=== PATIENT | female | born 1995 | race American Indian/Alaskan Native ===

== ENCOUNTER 2019-03-05 22:24 | Emergency (ER) | payer OTHER ==
--- NOTE | 2019-03-05 22:48 | Emergency Department Report ---
Blank Doc - Documentation Documentation: 23 y o female presents witth throat pain states tonsils out states previous hx and was given steroids which gave her relief [facility] eval
--- NOTE | 2019-03-06 01:36 | Emergency Department Report ---
ED ENT HPI - General Chief complaint: Sore Throat Stated complaint: THROAT SWELLING Time Seen by Provider: 03/05/19 22:47 Source: patient Mode of arrival: Ambulatory Limitations: No Limitations - History of Present Illness Initial comments: Patient is a nulliparous 23-year-old [place] female with no past medical history who presents to the ED with complaint of acute onset persistent nasal and sinus congestion, severe sore throat with dysphagia and mild dry cough for the last 2 days. Patient denies fever, chills, nausea, vomiting, dizziness, headache, chest pain, shortness of breath, dysuria, urinary frequency and urgency and abdominal pain. MD complaint: sore throat, other (Nasal and sinus congestion) -: Sudden, days(s) (2) Location: nose, throat Severity: moderate Severity scale (0 -10): 5 Quality: burning, aching, sharp Consistency: constant Improves with: none Worsens with: swallowing, eating Associated Symptoms: cough, pain with swallowing, sore throat, rhinorrhea - Related Data Previous Rx's Medication Instructions Recorded Last Taken Type Amoxicillin [Trimox CAP] 500 mg PO Q8H #30 capsule 03/06/19 Unknown Rx Ibuprofen [Motrin] 400 mg PO Q8H PRN #20 tablet 03/06/19 Unknown Rx methylPREDNISolone [Medrol] 4 mg PO DAILY #21 tab.ds.pk 03/06/19 Unknown Rx Allergies Allergy/AdvReac Type Severity Reaction Status Date / Time No Known Allergies Allergy Unverified 03/05/19 22:39 ED Dental HPI - General Chief complaint: Sore Throat Stated complaint: THROAT SWELLING Time Seen by Provider: 03/05/19 22:47 Source: patient Mode of arrival: Ambulatory Limitations: No Limitations - History of Present Illness Initial comments: Patient is a nulliparous 23-year-old [place] female with no past medical history who presents to the ED with complaint of acute onset persistent nasal and sinus congestion, severe sore throat with dysphagia and mild dry cough for the last 2 days. Patient denies fever, chills, nausea, vomiting, dizziness, headache, chest pain, shortness of breath, dysuria, urinary frequency and urgency and abdominal pain. MD complaint: sore throat, difficulty swallowing -: Sudden, days(s) (2) 1 - Erythematous oropharynx Severity: moderate Quality: burning, aching, constant Consistency: constant Improves with: none Worsens with: swallowing, eating Dental Associated Symptons: Yes: Sore Throat. No: Fever - Related Data Previous Rx's Medication Instructions Recorded Last Taken Type Amoxicillin [Trimox CAP] 500 mg PO Q8H #30 capsule 03/06/19 Unknown Rx Ibuprofen [Motrin] 400 mg PO Q8H PRN #20 tablet 03/06/19 Unknown Rx methylPREDNISolone [Medrol] 4 mg PO DAILY #21 tab.ds.pk 03/06/19 Unknown Rx Allergies Allergy/AdvReac Type Severity Reaction Status Date / Time No Known Allergies Allergy Unverified 03/05/19 22:39 ED Review of Systems ROS: Stated complaint: THROAT SWELLING Other details as noted in HPI Comment: All other systems reviewed and negative Constitutional: no symptoms reported, see HPI. denies: chills, diaphoresis, fever, malaise, weakness Eyes: as per HPI. denies: eye pain, eye discharge, vision change ENT: as per HPI, throat pain, congestion. denies: ear pain, dental pain, hearing loss, epistaxis Respiratory: no symptoms reported, see HPI, cough. denies: shortness of breath, SOB with exertion, SOB at rest Cardiovascular: as per HPI. denies: chest pain, palpitations, dyspnea on exertion, syncope, paroxysmal nocturnal dyspnea Endocrine: no symptoms reported, see HPI. denies: excessive sweating, flushing, increased thirst, increased urine, unexplained weight gain Gastrointestinal: as per HPI. denies: abdominal pain, nausea, vomiting, diarrhea, constipation, hematemesis, hematochezia Genitourinary: as per HPI. denies: urgency, dysuria, frequency, hematuria, abnormal menses, dyspareunia Musculoskeletal: as per HPI. denies: back pain, joint swelling, arthralgia Skin: as per HPI. denies: rash, lesions, change in color, change in hair/nails Neurological: as per HPI. denies: headache, weakness, numbness, paresthesias, confusion, abnormal gait, vertigo Psychiatric: as per HPI. denies: anxiety, depression, auditory hallucinations, visual hallucinations Hematological/Lymphatic: as per HPI. denies: easy bleeding, easy bruising, swollen glands ED Past Medical Hx - Past Medical History Previous Medical History?: No - Surgical History Additional Surgical History: tonsillectomy - Social History Smoking Status: Never Smoker Substance Use Type: Marijuana - Medications Home Medications: Home Medications Medication Instructions Recorded Confirmed Last Taken Type Amoxicillin [Trimox CAP] 500 mg PO Q8H #30 capsule 03/06/19 Unknown Rx Ibuprofen [Motrin] 400 mg PO Q8H PRN #20 tablet 03/06/19 Unknown Rx methylPREDNISolone [Medrol] 4 mg PO DAILY #21 tab.ds.pk 03/06/19 Unknown Rx ED Physical Exam - General Limitations: No Limitations General appearance: alert, in no apparent distress - Head Head exam: Present: atraumatic, normocephalic, normal inspection - Eye Eye exam: Present: normal appearance, PERRL, EOMI. Absent: scleral icterus, conjunctival injection, nystagmus, periorbital swelling, periorbital tenderness Pupils: Present: normal accommodation. Absent: mydriatic - ENT ENT exam: Present: mucous membranes moist, TM's normal bilaterally, normal external ear exam, other (Erythematous oropharynx with white exudates) - Neck Neck exam: Present: normal inspection, full ROM, lymphadenopathy. Absent: tenderness - Respiratory Respiratory exam: Present: normal lung sounds bilaterally. Absent: respiratory distress, wheezes, rales, chest wall tenderness, accessory muscle use, decreased breath sounds, prolonged expiratory - Cardiovascular Cardiovascular Exam: Present: regular rate, normal rhythm, normal heart sounds - GI/Abdominal GI/Abdominal exam: Present: soft. Absent: distended, tenderness, rebound, normal bowel sounds, hyperactive bowel sounds, hypoactive bowel sounds, bruit, pulsatile mass - Rectal Rectal exam: Present: deferred - Extremities Exam Extremities exam: Present: normal inspection, full ROM, normal capillary refill - Back Exam Back exam: Present: normal inspection, full ROM. Absent: tenderness, CVA tenderness (R), CVA tenderness (L), muscle spasm, paraspinal tenderness, vertebral tenderness - Neurological Exam Neurological exam: Present: alert, oriented X3, CN II-XII intact, normal gait, reflexes normal - Psychiatric Psychiatric exam: Present: normal affect. Absent: normal mood, depressed, anxious, flat affect, suicidal ideation - Skin Skin exam: Present: warm, dry, intact, normal color ED Course Vital Signs 03/05/19 03/06/19 22:36 01:57 Temperature 98.4 F 98.5 F Pulse Rate 95 H 73 Respiratory 18 16 Rate Blood Pressure 126/81 Blood Pressure 112/68 [Right] O2 Sat by Pulse 100 100 Oximetry - Reevaluation(s) Reevaluation #1: 03/06/19 06:43 Patient is alert and oriented 3 and is not in any distress with normal vital signs. Patient is sent home on medications and advised follow-up with her primary care physician in 5-7 days for reevaluation or return to the ED immediately if symptoms get worse. ED Medical Decision Making - Medical Decision Making Patient is alert and oriented 3 and is not in any distress with normal vital signs. Patient is sent home on medications and advised follow-up with her primary care physician in 5-7 days for reevaluation or return to the ED immediately if symptoms get worse - Differential Diagnosis acute strep pharyngitis, acute upper respiratory infection Critical care attestation.: If time is entered above; I have spent that time in minutes in the direct care of this critically ill patient, excluding procedure time. ED Disposition Clinical Impression: Acute upper respiratory infection Acute pharyngitis Qualifiers: Pharyngitis/tonsillitis etiology: other specified organisms Qualified Code(s): J02.8 - Acute pharyngitis due to other specified organisms Disposition: DC-01 TO HOME OR SELFCARE Is pt being admited?: No Does the pt Need Aspirin: No Condition: Stable Instructions: Pharyngitis (ED), Upper Respiratory Infection (ED) Additional Instructions: Take medication with food, drink plenty of fluids and follow up with your primary care physician in 3-5 days for reevaluation. Return to the ED immediately if symptoms get worse. Prescriptions: methylPREDNISolone [Medrol] 4 mg PO DAILY #21 tab.ds.pk Ibuprofen [Motrin] 400 mg PO Q8H PRN #20 tablet PRN Reason: Pain , Severe (7-10) Amoxicillin [Trimox CAP] 500 mg PO Q8H #30 capsule Referrals: JENNIFER MARKHAM MD [Primary Care Provider] - 3-5 Days Forms: Work/School Release Form(ED) Time of Disposition: 01:36 Print Language: GHANAIAN
[2019-03-06 01:58] VITALS: BP 112/68
== END 2019-03-06 01:58 | disposition home or self-care (01) ==
LOC: ED 22:24
DX: J02.8 Acute pharyngitis due to other specified organisms (principal); J06.9 Acute upper respiratory infection, unspecified; F12.10 Cannabis abuse, uncomplicated; Z90.49 Acquired absence of other specified parts of digestive tract
CPT/HCPCS: 99282

== ENCOUNTER 2019-09-10 18:35 | Emergency (ER) | payer SELFPAY ==
[2019-09-10 19:01] VITALS: BP 105/69
--- NOTE | 2019-09-10 19:03 | Emergency Department Report ---
- General Chief Complaint: Sore Throat Stated Complaint: HEADACHE/SWOLLEN THROAT/FEVER Time Seen by Provider: 09/10/19 18:57 Source: patient Mode of arrival: Ambulatory Limitations: No Limitations - History of Present Illness Initial Comments: This is a 24-year-old female nontoxic well in appearance with no signs of distress presents to the ED with complaint of sore throat,body aches, and frontal sinus pain. Patient denies any drooling or hoarseness. Patient denies any other symptoms. Denies any cough. Denies any fever, chills, headache, nausea, vomiting, chest pain or SOB. Denies any other complaints. MD Complaint: sore throat, rhinorrhea, nasal congestion, sinus pain -: days(s) Severity: mild Severity scale (0 -10): 8 Quality: aching Consistency: constant Improves With: nothing Worsens With: nothing Associated Symptoms: rhinorrhea, nasal congestion, sore throat. denies: fever, chills, myalgias, diaphoresis, headache, stiff neck, cough, chest pain, shortness of breath, abdominal pain, nausea, vomiting, diarrhea, dysuria, rash, confusion, right sweats, weight loss, epistaxis, hoarseness, ear pain Treatments Prior to Arrival: none - Related Data Previous Rx's Medication Instructions Recorded Last Taken Type Amoxicillin [Trimox CAP] 500 mg PO Q8H #30 capsule 03/06/19 Unknown Rx Ibuprofen [Motrin] 400 mg PO Q8H PRN #20 tablet 03/06/19 Unknown Rx methylPREDNISolone [Medrol] 4 mg PO DAILY #21 tab.ds.pk 03/06/19 Unknown Rx Amoxicillin/K Clav Tab [Augmentin 1 each PO Q12HR #20 tablet 09/10/19 Unknown Rx 500 MG TAB] Ibuprofen [Motrin] 600 mg PO Q8H PRN #20 tablet 09/10/19 Unknown Rx Nystas/Diphen/Xyl Visc/Mylanta 15 ml MM Q6H PRN 5 Days ml 09/10/19 Unknown Rx [Magic Mouthwash] Allergies Allergy/AdvReac Type Severity Reaction Status Date / Time latex Allergy Hives Verified 09/10/19 18:38 ED Review of Systems ROS: Stated complaint: HEADACHE/SWOLLEN THROAT/FEVER Other details as noted in HPI Constitutional: denies: chills, fever Eyes: denies: eye pain, eye discharge, vision change ENT: throat pain, congestion. denies: ear pain Respiratory: denies: cough, shortness of breath, wheezing Cardiovascular: denies: chest pain, palpitations Endocrine: no symptoms reported Gastrointestinal: denies: abdominal pain, nausea, diarrhea Genitourinary: denies: urgency, dysuria, discharge Musculoskeletal: denies: back pain, joint swelling, arthralgia Skin: denies: rash, lesions Neurological: denies: headache, weakness, paresthesias Psychiatric: denies: anxiety, depression Hematological/Lymphatic: denies: easy bleeding, easy bruising ED Past Medical Hx - Past Medical History Previous Medical History?: No - Surgical History Past Surgical History?: Yes Additional Surgical History: Tonsillectomy - Social History Smoking Status: Never Smoker Substance Use Type: Marijuana - Medications Home Medications: Home Medications Medication Instructions Recorded Confirmed Last Taken Type Amoxicillin [Trimox CAP] 500 mg PO Q8H #30 capsule 03/06/19 Unknown Rx Ibuprofen [Motrin] 400 mg PO Q8H PRN #20 tablet 03/06/19 Unknown Rx methylPREDNISolone [Medrol] 4 mg PO DAILY #21 tab.ds.pk 03/06/19 Unknown Rx Amoxicillin/K Clav Tab [Augmentin 1 each PO Q12HR #20 tablet 09/10/19 Unknown Rx 500 MG TAB] Ibuprofen [Motrin] 600 mg PO Q8H PRN #20 tablet 09/10/19 Unknown Rx Nystas/Diphen/Xyl Visc/Mylanta 15 ml MM Q6H PRN 5 Days ml 09/10/19 Unknown Rx [Magic Mouthwash] ED Physical Exam - General Limitations: No Limitations General appearance: alert, in no apparent distress - Head Head exam: Present: atraumatic, normocephalic - Expanded ENT Exam Expanded Ear exam: Present: normal external inspection Mouth exam: Present: normal external inspection. Absent: drooling, trismus, muffled voice Teeth exam: Present: normal inspection Throat exam: Positive: tonsillar erythema, other (uvula midline). Negative: tonsillomegaly, tonsillar exudate, R peritonsillar mass, L peritonsillar mass - Neck Neck exam: Present: normal inspection, full ROM. Absent: tenderness, meningismus, lymphadenopathy - Respiratory Respiratory exam: Present: normal lung sounds bilaterally. Absent: respiratory distress, wheezes, rales, rhonchi, stridor, chest wall tenderness, accessory muscle use, decreased breath sounds, prolonged expiratory - Cardiovascular Cardiovascular Exam: Present: regular rate, normal rhythm, normal heart sounds. Absent: systolic murmur, diastolic murmur, rubs, gallop - Extremities Exam Extremities exam: Present: normal inspection, full ROM - Back Exam Back exam: Present: normal inspection, full ROM. Absent: tenderness, CVA tenderness (R), CVA tenderness (L), muscle spasm, paraspinal tenderness, vertebral tenderness, rash noted - Neurological Exam Neurological exam: Present: alert, oriented X3, normal gait - Psychiatric Psychiatric exam: Present: normal affect, normal mood - Skin Skin exam: Present: warm, dry, intact, normal color. Absent: rash ED Course - Reevaluation(s) Reevaluation #1: 09/10/19 19:01 Patient is speaking in full sentences with no signs of distress noted. ED Medical Decision Making - Medical Decision Making Patient was instructed to Follow-up with a primary care doctor in 3-5 days or if symptoms worsen and continue return to emergency room as soon as possible. At time of discharge, the patient does not seem toxic or ill in appearance. No acute signs of distress noted. Patient agrees to discharge treatment plan of care. No further questions noted by the patient. Critical care attestation.: If time is entered above; I have spent that time in minutes in the direct care of this critically ill patient, excluding procedure time. ED Disposition Clinical Impression: Pharyngitis Qualifiers: Pharyngitis/tonsillitis etiology: unspecified etiology Qualified Code(s): J02.9 - Acute pharyngitis, unspecified Sinusitis Qualifiers: Sinusitis location: frontal Chronicity: acute Recurrence: non-recurrent Qualified Code(s): J01.10 - Acute frontal sinusitis, unspecified Disposition: DC- TO HOME OR SELFCARE Is pt being admited?: No Does the pt Need Aspirin: No Condition: Stable Instructions: Pharyngitis (ED), Sinusitis (ED) Additional Instructions: Follow-up with a primary care doctor in 3-5 days or if symptoms worsen and continue return to emergency room as soon as possible. Prescriptions: Amoxicillin/K Clav Tab [Augmentin 500 MG TAB] 1 each PO Q12HR #20 tablet Nystas/Diphen/Xyl Visc/Mylanta [Magic Mouthwash] 15 ml MM Q6H PRN 5 Days ml PRN Reason: Sore Throat Ibuprofen [Motrin] 600 mg PO Q8H PRN #20 tablet PRN Reason: Pain Referrals: PRIMARY CARE, [Referring] - 3-5 Days MACHELLE SAHU MD [Staff Physician] - 3-5 Days [facility] [Outside] - 3-5 Days [facility] [Outside] - 3-5 Days Forms: Work/School Release Form(ED)
== END 2019-09-10 19:00 | disposition home or self-care (01) ==
LOC: ED 18:35
DX: J01.10 Acute frontal sinusitis, unspecified (principal); J02.9 Acute pharyngitis, unspecified
CPT/HCPCS: 99282

== ENCOUNTER 2020-02-29 22:46 | Emergency (ER) | payer SELFPAY ==
[2020-02-29 23:06] VITALS: BP 109/64
[2020-02-29] MEDS ORDERED: SODIUM CHLORIDE 0.9% 500 ML 500 ML IV ONE (23:11)
[2020-02-29] MEDS ORDERED: SODIUM CHLORIDE 0.9% 1000 ML 1,000 ML IV ONE (23:24)
--- NOTE | 2020-02-29 23:25 | Emergency Department Report ---
ED Fever HPI - General Chief Complaint: Abdominal Pain Stated Complaint: FEVER Time Seen by Provider: 02/29/20 23:19 Source: patient Exam Limitations: no limitations - History of Present Illness Initial Comments: This is a 24-year-old female without significant past medical history who presents with fever nausea vomiting epigastric pain for 3 days. She just cannot "hold anything down". She has a stabbing dull pain in her epigastric region. Pain radiates to her back. She denies dysuria. Last menstrual cycle within the last few weeks. She denies diarrhea. She denies headache. She denies sore throat. She denies cough. No sick contacts. No recent travel Gradual onset of pain. Pain does not change with movement or cough. Pain is constant. Associated Symptoms: abdominal pain, nausea/vomiting ED Review of Systems ROS: Stated complaint: FEVER Other details as noted in HPI Comment: All other systems reviewed and negative Constitutional: fever, malaise ENT: denies: throat pain Respiratory: denies: cough, shortness of breath Cardiovascular: denies: chest pain Gastrointestinal: abdominal pain, nausea, vomiting Musculoskeletal: back pain ED Past Medical Hx - Past Medical History Previous Medical History?: No Additional medical history: Inflamed colon - Surgical History Past Surgical History?: Yes Additional Surgical History: Tonsillectomy - Social History Smoking Status: Never Smoker Substance Use Type: Alcohol - Medications Home Medications: Home Medications Medication Instructions Recorded Confirmed Last Taken Type Amoxicillin [Trimox CAP] 500 mg PO Q8H #30 capsule 03/06/19 Unknown Rx Ibuprofen [Motrin] 400 mg PO Q8H PRN #20 tablet 03/06/19 Unknown Rx methylPREDNISolone [Medrol] 4 mg PO DAILY #21 tab.ds.pk 03/06/19 Unknown Rx Amoxicillin/K Clav Tab [Augmentin 1 each PO Q12HR #20 tablet 09/10/19 Unknown Rx 500 MG TAB] Ibuprofen [Motrin] 600 mg PO Q8H PRN #20 tablet 09/10/19 Unknown Rx Nystas/Diphen/Xyl Visc/Mylanta 15 ml MM Q6H PRN 5 Days ml 09/10/19 Unknown Rx [Magic Mouthwash] HYDROcodone/APAP 5-325 [[place] 1 each PO Q6HR PRN #15 tablet 03/01/20 Unknown Rx 5/325] Ibuprofen [Motrin 800 MG tab] 800 mg PO Q8HR PRN #15 tablet 03/01/20 Unknown Rx Promethazine [Phenergan] 25 mg PO Q6HR PRN #10 tab 03/01/20 Unknown Rx cephALEXin [Keflex] 500 mg PO Q6HR 10 Days #40 capsule 03/01/20 Unknown Rx ED Physical Exam - General Limitations: No Limitations General appearance: alert, in no apparent distress, other (Well-appearing talkative moves with ease) - Head Head exam: Present: atraumatic, normocephalic - Eye Eye exam: Present: normal appearance - ENT ENT exam: Present: mucous membranes moist - Neck Neck exam: Present: normal inspection, full ROM - Respiratory Respiratory exam: Present: normal lung sounds bilaterally. Absent: respiratory distress, wheezes, rales, rhonchi - Cardiovascular Cardiovascular Exam: Present: normal rhythm, tachycardia, normal heart sounds. Absent: systolic murmur, diastolic murmur, rubs, gallop - GI/Abdominal GI/Abdominal exam: Present: soft, normal bowel sounds. Absent: distended, tenderness, guarding, rebound - Extremities Exam Extremities exam: Present: normal inspection - Back Exam Back exam: Present: normal inspection, full ROM. Absent: tenderness, CVA tenderness (R), CVA tenderness (L) - Neurological Exam Neurological exam: Present: alert, oriented X3 - Psychiatric Psychiatric exam: Present: normal affect, normal mood - Skin Skin exam: Present: warm, dry, intact, normal color. Absent: rash ED Course Vital Signs 02/29/20 02/29/20 02/29/20 23:00 23:05 23:24 Temperature 101.5 F H 101.5 F H Pulse Rate 126 H 126 H Respiratory 16 15 Rate Blood Pressure 109/64 [Right] O2 Sat by Pulse 99 99 Oximetry 02/29/20 02/29/20 03/01/20 23:30 23:46 00:00 Temperature Pulse Rate 130 H 113 H 114 H Respiratory 18 12 19 Rate Blood Pressure [Right] O2 Sat by Pulse 98 97 97 Oximetry 03/01/20 03/01/20 03/01/20 00:32 00:46 01:00 Temperature Pulse Rate 122 H 115 H 115 H Respiratory 20 14 15 Rate Blood Pressure [Right] O2 Sat by Pulse 99 88 95 Oximetry 03/01/20 01:16 Temperature Pulse Rate 117 H Respiratory 18 Rate Blood Pressure [Right] O2 Sat by Pulse 98 Oximetry ED Medical Decision Making - Lab Data Result diagrams: 02/29/20 23:34 02/29/20 23:34 Laboratory Results - last 24 hr 02/29/20 02/29/20 02/29/20 23:34 23:34 23:34 WBC 15.3 H RBC 4.20 Hgb 13.6 Hct 39.2 MCV 93 MCH 32 MCHC 35 H RDW 14.2 Plt Count 210 Lymph % (Auto) 3.8 L Miller % (Auto) 14.3 H Eos % (Auto) 0.0 Baso % (Auto) 0.2 Lymph # 0.6 L Miller # 2.2 H Eos # 0.0 Baso # 0.0 Seg Neutrophils % 81.7 H Seg Neutrophils # 12.5 H PT INR VBG pH Sodium 133 L Potassium 3.0 L Chloride 93.1 L Carbon Dioxide 25 Anion Gap 18 BUN 8 Creatinine 1.0 Estimated GFR > 60 BUN/Creatinine Ratio 8 Glucose 139 H Lactic Acid Calcium 9.2 Total Bilirubin 1.50 H AST 26 ALT 28 Alkaline Phosphatase 127 Total Protein 8.0 Albumin 4.2 Albumin/Globulin Ratio 1.1 Lipase 11 L HCG, Qual Negative Urine Color Urine Turbidity Urine pH Ur Specific [place] Urine Protein Urine Glucose (UA) Urine Ketones Urine Blood Urine Nitrite Urine Bilirubin Urine Urobilinogen Ur Leukocyte Esterase Urine WBC (Auto) Urine RBC (Auto) U Epithel Cells (Auto) Urine Bacteria (Auto) Urine Mucus 02/29/20 02/29/20 02/29/20 23:34 23:34 23:34 WBC RBC Hgb Hct MCV MCH MCHC RDW Plt Count Lymph % (Auto) Miller % (Auto) Eos % (Auto) Baso % (Auto) Lymph # Miller # Eos # Baso # Seg Neutrophils % Seg Neutrophils # PT 15.6 H INR 1.22 H VBG pH 7.390 Sodium Potassium Chloride Carbon Dioxide Anion Gap BUN Creatinine Estimated GFR BUN/Creatinine Ratio Glucose Lactic Acid 1.40 Calcium Total Bilirubin AST ALT Alkaline Phosphatase Total Protein Albumin Albumin/Globulin Ratio Lipase HCG, Qual Urine Color Urine Turbidity Urine pH Ur Specific [place] Urine Protein Urine Glucose (UA) Urine Ketones Urine Blood Urine Nitrite Urine Bilirubin Urine Urobilinogen Ur Leukocyte Esterase Urine WBC (Auto) Urine RBC (Auto) U Epithel Cells (Auto) Urine Bacteria (Auto) Urine Mucus 02/29/20 23:50 WBC RBC Hgb Hct MCV MCH MCHC RDW Plt Count Lymph % (Auto) Miller % (Auto) Eos % (Auto) Baso % (Auto) Lymph # Miller # Eos # Baso # Seg Neutrophils % Seg Neutrophils # PT INR VBG pH Sodium Potassium Chloride Carbon Dioxide Anion Gap BUN Creatinine Estimated GFR BUN/Creatinine Ratio Glucose Lactic Acid Calcium Total Bilirubin AST ALT Alkaline Phosphatase Total Protein Albumin Albumin/Globulin Ratio Lipase HCG, Qual Urine Color Stefany Urine Turbidity Slightly-cloudy Urine pH 6.0 Ur Specific [place] 1.017 Urine Protein 100 mg/dl Urine Glucose (UA) Neg Urine Ketones Neg Urine Blood Mod Urine Nitrite Neg Urine Bilirubin Neg Urine Urobilinogen 4.0 Ur Leukocyte Esterase Neg Urine WBC (Auto) 24.0 H Urine RBC (Auto) 13.0 U Epithel Cells (Auto) 11.0 Urine Bacteria (Auto) 1+ Urine Mucus Few - EKG Data EKG shows normal: sinus rhythm, axis, intervals, QRS complexes, ST-T waves Rate: tachycardia - EKG Data Interpretation: normal EKG (With exception of sinus tachycardia rate 120 bpm) - Radiology Data Radiology results: report reviewed Radiology report: CT abdomen pelvis revealed prominent pyelonephritis involving the upper pole of the left kidney reactive adenopathy retroperitoneal, 1 mm nonobstructing stone Appendix is normal remaining parenchymal organs are unremarkable - Medical Decision Making Acute pyelonephritis: Patient resuscitated with IV fluid, ceftriaxone first dose provided in the emergency department. Prescribed: Cephalexin, promethazine, [place], ibuprofen. Hypokalemia dehydration which corroborates with patient's 3-day history of nausea vomiting. Critical care attestation.: If time is entered above; I have spent that time in minutes in the direct care of this critically ill patient, excluding procedure time. ED Disposition Clinical Impression: Acute pyelonephritis Disposition: DC-01 TO HOME OR SELFCARE Is pt being admited?: No Does the pt Need Aspirin: No Condition: Stable Instructions: Acute Pyelonephritis (ED) Prescriptions: cephALEXin [Keflex] 500 mg PO Q6HR 10 Days #40 capsule Ibuprofen [Motrin 800 MG tab] 800 mg PO Q8HR PRN #15 tablet PRN Reason: Pain , Severe (7-10) HYDROcodone/APAP 5-325 [[place] 5/325] 1 each PO Q6HR PRN #15 tablet PRN Reason: Pain Promethazine [Phenergan] 25 mg PO Q6HR PRN #10 tab PRN Reason: Nausea Referrals: LAKEISHA GLEASON MD [Staff Physician] - 3-5 Days
[2020-02-29] MEDS ORDERED: MORPHINE 4 MG/1 ML INJ IV ONE (23:34)
[2020-02-29] MEDS ORDERED: ONDANSETRON 4 MG/2 ML INJ IV ONE (23:35)
[2020-02-29 23:46] LABS: Basophils % (Auto) 0.2 % (0.0-1.8); Hematocrit 39.2 % (30.3-42.9); Hemoglobin 13.6 gm/dl (10.1-14.3); Lymphocytes # (Auto) 0.6 K/mm3 (1.2-5.4); Lymphocytes % (Auto) 3.8 % (13.4-35.0); Mean Corpuscular HGB Conc 35 % (30-34); Mean Corpuscular Volume 93 fl (79-97); Monocytes # (Auto) 2.2 K/mm3 (0.0-0.8); Monocytes % (Auto) 14.3 % (0.0-7.3); Platelet Count 210 K/mm3 (140-440); Red Cell Distribution Width 14.2 % (13.2-15.2)
[2020-02-29 23:59] LABS: INR 1.22 (0.87-1.13)
[2020-03-01 00:01] LABS: Alanine Aminotransferase 28 units/L (7-56); Albumin 4.2 g/dL (3.9-5); BUN/Creatinine Ratio 8; Blood Urea Nitrogen 8 mg/dL (7-17); Calcium 9.2 mg/dL (8.4-10.2); Hemolysis Index 2
[2020-03-01 00:14] LABS: Bacteria,Urine 1+ /HPF (Negative); Bilirubin,Urine NEG (Negative); Blood,Urine MOD (Negative); Color,Urine Amber (Yellow); Mucus,Urine FEW /HPF
--- NOTE | 2020-03-01 00:56 | XRay Report ---
CHEST 1 VIEW INDICATION: possible Sepsis. COMPARISON: None. FINDINGS: Support devices: None. Heart: Within normal limits. Lungs/Pleura: No acute air space or interstitial disease. Additional findings: None. IMPRESSION: No acute abnormality. Signer Name: Douglas Aguilera MD Signed: 03/01/2020 12:51 AM Workstation Name: [id number]
--- NOTE | 2020-03-01 01:03 | Cat Scan Report ---
CT abdomen pelvis w con INDICATION: Fever. Epigastric pain with nausea and vomiting. TECHNIQUE: All CT scans at this location are performed using the following dose modulation technique: Automated exposure control. CONTRAST: Omnipaque 300, 100 cc IV injection. COMPARISON: None available. CT ABDOMEN: Evaluation of the parenchymal organs demonstrates heterogeneous enhancement involving the superior aspect of the left kidney. The right kidney demonstrates cortical scarring medially and a 1 mm nonobstructing stone. The remaining parenchymal organs are unremarkable. Negative for abdominal mass or fluid collection. A prominent node along the medial aspect of the left kidney measures 1.6 cm in its greatest short axis diameter. The bowel is not dilated or thickened. CT PELVIS: Negative for mass, fluid or inflammation. The appendix is normal. IMPRESSION: 1. Prominent pyelonephritis involving the upper pole the left kidney. Negative for abscess. 2. Retroperitoneal adenopathy to the left of the aorta is likely reactive. 3. Right renal scarring and 1 mm nonobstructing stone. Signer Name: Douglas Aguilera MD Signed: 03/01/2020 12:58 AM Workstation Name: [id number]
[2020-03-01] MEDS ORDERED: MORPHINE 4 MG/1 ML INJ IV ONE (01:09)
[2020-03-01] MEDS ORDERED: cefTRIAXone/NS 2 GM/100 ML 2 GM/100 ML BAG IV ONE (01:20)
[2020-03-01] MEDS ORDERED: IBUPROFEN 800 MG TAB PO ONE (01:29)
[2020-03-01] MEDS ORDERED: HYDROcodone/ACETAMINOPHEN 5-325 MG TAB PO ONE (01:29)
== END 2020-03-01 02:00 | disposition home or self-care (01) ==
LOC: ED 22:46
DX: N10 Acute pyelonephritis (principal); R11.2 Nausea with vomiting, unspecified; Z90.89 Acquired absence of other organs; Z79.1 Long term (current) use of non-steroidal anti-inflammatories (NSAID); Z79.2 Long term (current) use of antibiotics; Z79.899 Other long term (current) drug therapy; Z88.8 Allergy status to other drugs, medicaments and biological substances
CPT/HCPCS: 36415; 71045; 74177; 80053; 81001; 82140; 82805; 83690; 84703; 85025; 85610; 87040; 87076; 87086; 87186; 93005; 96361; 96365; 96375; 96376; 99285; J0696; J2270; J2405; J7030; J7040; Q9967